=== PATIENT | female | born 1970 | race Caucasian/White ===

== ENCOUNTER → 2018-06-09 | Outpatient (CLI) | payer BC ==
[~2018-06-09] MED LIST: CETIRIZINE HCL5 MG PO; CIPRO500 MG PO; LEXAPRO 10 MG T10 M2 PO; UNICOMPLEX M TA1 TA1 PO
== END ==
LOC: M.ULTRA 08:00
DX: N28.1 Cyst of kidney, acquired (principal)

== ENCOUNTER → 2019-04-06 | Outpatient (CLI) | payer BC | LOC: M.ULTRA 13:20 | DX: R55 Syncope and collapse (principal); Z88.8 Allergy status to other drugs, medicaments and biological substances ==

== ENCOUNTER → 2019-04-10 | Outpatient (CLI) | payer BC ==
[2019-04-10] VITALS (16 sets, daily range): BP systolic 68–149; BP diastolic 42–78
[2019-04-10 13:53] LABS: HEMATOCRIT 34.9 % (37.0-47.0); HEMOGLOBIN 11.9 gm/dL (12.0-15.0); MCH 31.1 pg (26.0-34.0); MCHC 34.2 g/dL (28.0-37.0); MCV 90.8 fL (80.0-100.0); RBC 3.84 mil/uL (4.20-5.00); RDW-CV 13.2 % (10.5-14.5); WBC 9.6 thou/uL (4.0-11.0)
[2019-04-10 14:03] LABS: CALCIUM 8.1 mg/dL (8.5-10.1); CREATININE 0.8 mg/dL (0.6-1.3); POTASSIUM 3.6 mmol/L (3.5-5.1)
[2019-04-10 14:08] LABS: ALBUMIN 3.7 g/dL (3.4-5.0); MAGNESIUM 1.9 mg/dL (1.8-2.4); TOTAL BILIRUBIN 0.3 mg/dL (<0.1-1.0); TOTAL PROTEIN 6.9 g/dL (6.4-8.2)
--- NOTE | 2019-04-11 14:21 | PROC ---
[address] [address] PROCEDURE REPORT Name: TAVARESSHWETA ROMAN Room: [facility]#: [id number] Admission: 04/10/19 Attend Phys: KAEL Renee Discharge: Date of : 72 Report #: [id number] THIS REPORT FOR: //name// CC: Lincoln Castro DATE OF SERVICE: 04/10/2019 PROCEDURE PERFORMED: Tilt table test INDICATIONS: A tilt table test was requested in this patient with a history of syncope. RESULTS: A tilt table test was performed by placing the patient in the supine position on the tilt table. At baseline, the patient had a blood pressure of 127/73 with a pulse of 75 and the patient was in sinus rhythm. The patient was monitored throughout the test. The patient was then standing in the head upright position on the tilt table test at 70 degrees. At this time, the patient had a blood pressure 148/75 with a pulse of 88. She remained in sinus rhythm. The patient was then left in the head upright position for 20 minutes. At this time, the patient was noted to have a sinus tachycardia with a blood pressure 126/74. The patient was then given nitroglycerin 0.4 mg sublingually. Five minutes later, the patient complained of feeling hot and nauseated. The patient then became unresponsive. Her blood pressure was noted to be 85/42 and pulse of 80. She was placed back into the supine position. The patient's blood pressure at that time was 113/58 with pulse 58. She remained asymptomatic. IMPRESSION: 1. 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 2. Results primarily indicated a vasodepressor response with no significant cardioinhibitory response noted. <ELECTRONICALLY SIGNED> By: Jose Maria Hines MD, FACC 04/11/19 1421 1609 [id number] Hines MD, FACC /nt
== END | disposition home or self-care (01) ==
LOC: M.CL 12:21
PROVIDERS: Registered Nurse
DX: R55 Syncope and collapse (principal); Z98.890 Other specified postprocedural states; Z79.899 Other long term (current) drug therapy; Z88.2 Allergy status to sulfonamides; Z88.8 Allergy status to other drugs, medicaments and biological substances

== ENCOUNTER → 2019-07-09 | Outpatient (CLI) | payer BC | LOC: M.RAD 10:20 | DX: Z12.31 Encounter for screening mammogram for malignant neoplasm of breast (principal) ==

== ENCOUNTER → 2019-07-09 | Outpatient (CLI) | payer OTHER | LOC: M.CT 09:00 | DX: Z13.6 Encounter for screening for cardiovascular disorders (principal); E78.00 Pure hypercholesterolemia, unspecified; I25.10 Atherosclerotic heart disease of native coronary artery without angina pectoris ==

== ENCOUNTER → 2019-07-16 | Outpatient (CLI) | payer BC | LOC: M.ULTRA 08:57 | DX: N60.02 Solitary cyst of left breast (principal); N63.20 Unspecified lump in the left breast, unspecified quadrant ==

== ENCOUNTER 2019-08-28 16:40 | Emergency (ER) | payer BC ==
[~2019-08-28] VITALS: Ht 170.2 cm; Wt 55.3 kg
[2019-08-28 17:38] LABS: HEMATOCRIT 35.7 % (37.0-47.0); HEMOGLOBIN 12.1 gm/dL (12.0-15.0); MCH 30.8 pg (26.0-34.0); MCHC 33.9 g/dL (28.0-37.0); MCV 90.8 fL (80.0-100.0); MPV 8.6 fl. (7.2-11.1); NUCLEATED RBCS 0 /100WBC; PLATELET COUNT* 382 thou/uL (150-400); RBC 3.93 mil/uL (4.20-5.00); RDW-CV 12.8 % (10.5-14.5); WBC 18.3 thou/uL (4.0-11.0)
[2019-08-28 17:40] LABS: CALCIUM 8.5 mg/dL (8.5-10.1); CREATININE 0.8 mg/dL (0.6-1.3); POTASSIUM 3.8 mmol/L (3.5-5.1)
[2019-08-28 17:44] LABS: ALBUMIN 3.9 g/dL (3.4-5.0); TOTAL BILIRUBIN 0.2 mg/dL (<0.1-1.0); TOTAL PROTEIN 7.3 g/dL (6.4-8.2)
[2019-08-28 17:58] LABS: URINE BILIRUBIN NEGATIVE (Negative); URINE BLOOD TRACE (Negative); URINE CLARITY CLEAR; URINE COLOR YELLOW; URINE GLUCOSE-RANDOM NEGATIVE (Negative); URINE KETONES NEGATIVE (Negative); URINE LEUKOCYTES-REFLEX NEGATIVE (Negative); URINE NITRITE-REFLEX NEGATIVE (Negative); URINE PROTEIN NEGATIVE (Negative); URINE UROBILINOGEN 0.2 E.U./dl (0.2-1.0)
[2019-08-28 18:03] LABS: ABSOLUTE MONOCYTES 0.2 thou/uL (0.0-1.2); ABSOLUTE NEUTROPHILS 16.1 thou/uL (1.6-8.1); PLATELET ESTIMATE ADEQUATE
[2019-08-28] MEDS ORDERED: ONDANSETRON HCL4 M2 PO (18:53)
[2019-08-28 19:21] VITALS: BP 133/62
--- NOTE | 2019-08-29 15:42 | EKG ---
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
== END 2019-08-28 19:21 | disposition home or self-care (01) ==
LOC: M.ERS 16:40
PROVIDERS: Nurse Practitioner Family
DX: S06.0X0A Concussion without loss of consciousness, initial encounter (principal); S16.1XXA Strain of muscle, fascia and tendon at neck level, initial encounter; S00.03XA Contusion of scalp, initial encounter; R55 Syncope and collapse; Z98.82 Breast implant status; Z88.1 Allergy status to other antibiotic agents; Z88.6 Allergy status to analgesic agent; Z88.8 Allergy status to other drugs, medicaments and biological substances; W18.39XA Other fall on same level, initial encounter; Y93.89 Activity, other specified; Y92.89 Other specified places as the place of occurrence of the external cause; Y99.8 Other external cause status

== ENCOUNTER → 2019-10-31 | Outpatient (CLI) | payer BC ==
[~2019-10-31] MED LIST changes: +ONDANSETRON HCL4 M2 PO
== END ==
LOC: M.ULTRA 09:52
PROVIDERS: ATTEND Nurse Practitioner
DX: Z01.411 Encounter for gynecological examination (general) (routine) with abnormal findings (principal); N89.8 Other specified noninflammatory disorders of vagina; N92.6 Irregular menstruation, unspecified; N92.0 Excessive and frequent menstruation with regular cycle; N94.10 Unspecified dyspareunia

== ENCOUNTER → 2019-12-31 | Outpatient (CLI) | payer BC | LOC: M.ULTRA 09:30 | PROVIDERS: ATTEND Nurse Practitioner | DX: N63.23 Unspecified lump in the left breast, lower outer quadrant (principal); N60.01 Solitary cyst of right breast ==

== ENCOUNTER → 2020-11-13 | Outpatient (CLI) | payer BC | LOC: M.RAD 10:15 | PROVIDERS: ATTEND Specialist | DX: Z12.31 Encounter for screening mammogram for malignant neoplasm of breast (principal); N64.89 Other specified disorders of breast ==